=== PATIENT | male | born 1950 | race Caucasian/White ===

== ENCOUNTER → 2016-09-29 | Outpatient (CLI) | payer MEDICARE | LOC: PCVCIMAG 10:10 | PROVIDERS: ATTEND Internal Medicine Cardiovascular Disease | DX: I48.0 Paroxysmal atrial fibrillation (principal) | CPT/HCPCS: 93325; 93351 ==

== ENCOUNTER → 2017-04-13 | Outpatient (CLI) | payer MEDICARE | END | disposition home or self-care (01) | LOC: PCVCCLINIC 10:25 | PROVIDERS: ATTEND Internal Medicine Cardiovascular Disease | DX: I48.0 Paroxysmal atrial fibrillation (principal); I10 Essential (primary) hypertension; E78.00 Pure hypercholesterolemia, unspecified; G47.33 Obstructive sleep apnea (adult) (pediatric); R00.1 Bradycardia, unspecified; Z99.89 Dependence on other enabling machines and devices; Z87.891 Personal history of nicotine dependence; Z79.899 Other long term (current) drug therapy; Z79.82 Long term (current) use of aspirin | CPT/HCPCS: 80061; 93005; G0463 ==

== ENCOUNTER → 2018-07-05 | Outpatient (CLI) | payer MEDICARE | END | disposition home or self-care (01) | LOC: PCVCCLINIC 15:38 | PROVIDERS: ATTEND Internal Medicine Cardiovascular Disease | DX: I48.0 Paroxysmal atrial fibrillation (principal); I10 Essential (primary) hypertension; E78.5 Hyperlipidemia, unspecified; E78.00 Pure hypercholesterolemia, unspecified; R07.9 Chest pain, unspecified; Z87.891 Personal history of nicotine dependence; Z79.899 Other long term (current) drug therapy | CPT/HCPCS: 36415; 80061; 93005; G0463 ==

== ENCOUNTER → 2018-09-15 | Outpatient (CLI) | payer MEDICARE ==
--- NOTE | 2018-09-15 13:31 | PCVCIMAG ---
APPROVED REPORT Study performed: 09/15/2018 11:21:58 Exam: Stress Echocardiogram Indication: Hyperlipidemia, Hypertension Stress Nurse: Allegra Rosenthal RN Status: routine Ht: 5 ft 11 in HR: 63 bpm BP: 112/80 mmHg Rhythm: NSR Medical History Medical History: Hyperlipidemia, HTN, Paroxysmal atrial fib Procedure The patient underwent an Exercise Stress Test using the Darryl Protocol. Blood pressure, heart rate, and EKG were monitored. An Echocardiogram was performed by residential service technician in four stages in quad fashion. At peak stress, four selected images were obtained and placed side by side with resting images for comparison. Stress Test Details Stress Test: Exercise stress testing was performed using a Darryl protocol. HR Resting HR: 63 bpmMax Heart Rate (APMHR): 153 bpm Max HR Achieved: 157 bpmTarget HR (85% APMHR): 130 bpm % of APMHR: 102 Recovery HR: 76 bpm HR response to stress: Normal HR response to stress BP Resting BP: 112/80 mmHg Max BP: 184/80 mmHg Recovery BP: 142/74 mmHg BP response to stress: Normal blood pressure response to stress. ECG Resting ECG: Sinus Rhythm Stress ECG: Sinus Rhythm Arrhythmia: APC's Recovery ECG: Sinus Rhythm Recovery Arrhythmia: VPC Clinical Reason for Termination: Maximal effort Exercise duration: 9 min 30 sec Highest Stage Achieved: Stage 3: 3.4 mph at 14% grade. Exercise capacity: 11.50 METs Overall Exercise Capacity for Age: Normal Pre-Stress Echo The resting Echocardiogram showed normal left ventricular contractility with an estimated Ejection Fraction of about 55-60%. Normal wall motion in all segments on baseline images. Post-Stress Echo The stress Echocardiogram showed normal left ventricular contractility with an estimated Ejection Fraction of about 60-65%. Normal augmentation of wall motion in all segments on post stress images. Clinical No clinical or ECG evidence for ischemia. Conclusion Clinical Response: Non-ischemic Exercise Capacity: Average Stress ECG Response: Non-ischemic Stress Echo Images: Non-ischemic The left ventricle is normal in size and wall thickness in both the rest and stress images. <Conclusion> The left ventricle is normal in size and wall thickness in both the rest and stress images.
== END | disposition home or self-care (01) ==
LOC: PCVCIMAG 10:56
PROVIDERS: ATTEND Internal Medicine Cardiovascular Disease
DX: I10 Essential (primary) hypertension (principal); E78.5 Hyperlipidemia, unspecified; I48.0 Paroxysmal atrial fibrillation
CPT/HCPCS: 93325; 93351